=== PATIENT | male | born 1965 ===

== ENCOUNTER 2020-09-11 06:07 | Observation (INO) ==
[~2020-09-11 06:07] MED LIST: Buffered Lidocaine 1% SYRIN 1 ml INTRADERM ONE; Lactated Ringers 1000 ml BAG 1,000 ML IV SCH
[2020-09-11] MEDS ORDERED: ceFAZolin 2 GM PREMIX 2 GM/50 ML BAG ONE (06:33)
[2020-09-11] MEDS ORDERED: Buffered Lidocaine 1% SYRIN 1 ml INTRADERM ONE (06:34)
[2020-09-11] MEDS ORDERED: fentaNYL 250 mcg/5 ml 50 MCG/ML 5 ml VIAL (250 MCG) ONE (07:01)
[2020-09-11] MEDS ORDERED: Midazolam 2 mg/2 ml VIAL 1 mg/ml 2 ml VIAL (2 mg) ONE (07:01)
[2020-09-11] MEDS ORDERED: Remifentanil 2 MG VIAL ONE (07:01)
[2020-09-11] MEDS ORDERED: Bupivacaine 0.25% EPI 200,000 30 ML SDV ONE (07:05)
[2020-09-11] MEDS ORDERED: Bacitracin INJECTION (manuf dc) 50,000 UNITS ONE ×2 (07:05→11:43)
[2020-09-11] MEDS ORDERED: Lidocaine 2% PF 5 ML VIAL ONE (07:07)
[2020-09-11] MEDS ORDERED: Phenylephrine IV 10 MG/ML 1 ml VIAL ONE (07:07)
[2020-09-11] MEDS ORDERED: Succinylcholine 200 mg VIAL 20 mg/ml 10 ml VIAL (200 mg) ONE (07:11)
[2020-09-11] MEDS ORDERED: Propofol 10 MG/ML 20 ML BTL ONE ×4 (07:11→09:39)
[2020-09-11] MEDS ORDERED: Propofol 10 mg/ml 100 ML BTL 300 ML ONE (07:18)
[2020-09-11] MEDS ORDERED: Artificial Tear OPHTH.OINT 3.5 GM ONE (07:23)
[2020-09-11] MEDS ORDERED: Dexamethasone IV 4 MG/ML VIAL 1 ml VIAL ONE (08:29)
[2020-09-11] MEDS ORDERED: HYDROmorphone 1 MG/1 ML SYRINGE ONE ×2 (08:42→11:41)
[2020-09-11] MEDS ORDERED: Rocuronium 50 mg VIAL 10 mg/ml 5 ml VIAL (50 mg) ONE (09:13)
[2020-09-11] MEDS ORDERED: Cisatracurium 2 MG/ML MDV 5 ML ONE (09:33)
[2020-09-11] MEDS ORDERED: Glycopyrrolate IV 0.2 MG/ML 1 ML VIAL ONE ×2 (09:47→10:01)
[2020-09-11] MEDS ORDERED: EPHEDrine (Pressors) 50 MG/ML VIAL ONE (09:50)
[2020-09-11] MEDS ORDERED: ceFAZolin VIAL VIAL ONE (11:36)
[2020-09-11] MEDS ORDERED: Ondansetron 4 mg VIAL 2 MG/ML 2 ml VIAL ONE (12:28)
[2020-09-11] MEDS ORDERED: Ondansetron 4 mg VIAL 2 MG/ML 2 ml VIAL IV PRN (13:13)
[2020-09-11] MEDS ORDERED: diPHENhydraMINE IV 50 MG/ML 1 ml VIAL (BENADRYL) IV PRN (13:31)
[2020-09-11] MEDS ORDERED: DiMENhydriNATE IV 50 mg/ml 1 ml VIAL IV PUSH PRN (13:31)
[2020-09-11] MEDS ORDERED: fentaNYL 100 mcg/2 ml 50 MCG/ML VIAL IV PRN (13:31)
[2020-09-11] MEDS ORDERED: Naloxone 0.4 mg VIAL 0.4 mg/ml 1 ml VIAL IV PRN (13:31)
[2020-09-11] MEDS ORDERED: fentaNYL 100 mcg/2 ml 50 MCG/ML VIAL ONE (13:47)
[2020-09-11 17:19] VITALS: BP 148/110
== END 2020-09-11 19:00 | disposition home or self-care (01) ==
LOC: SSU 06:07 → OR 06:07
PROVIDERS: ADMIT Neurological Surgery; ATTEND Neurological Surgery